=== PATIENT | female | born 1940 | race Caucasian/White ===

== ENCOUNTER 2016-08-31 10:12 | Observation (INO) | payer MEDICARE, OTHER ==
[~2016-08-31] VITALS: Ht 152.4 cm; Wt 70.9 kg
[~2016-08-31 10:12] MED LIST: ASPIR 8181 MG PO; BENICAR40 MG PO; CORTISPORIN OTI10 ML AD; DIGOXIN125 MCG PO; FUROSEMIDE40 MG PO; INVOKANA100 MG PO; LEVOTHYROXINE112 MCG PO; LORATADINE10 MG PO; METFORMIN HCL1000 MG PO; METOPROLOL TAR100 MG PO; METOPROLOL TART50 MG PO; NORVASC 5 MG TAB5 MG PO; PRAVASTATIN SOD20 MG PO; PROTONIX40 MG PO; SYMBICORT 160-1 INHA INH; VOLTAREN100 GM TOP; XARELTO15 MG PO; ZANTAC150 MG PO; ZOFRAN4 MG PO
[2016-08-31 11:25] LABS: HEMOGLOBIN 12.8 gm/dl (12.3-15.3); RED BLOOD COUNT 4.1 M/UL (4.00-5.10); WHITE BLOOD COUNT 9.4 K/UL (4.5-11.0)
[2016-08-31] MEDS ORDERED: ALBUTEROL0.63 MG/3 INH (17:52)
[2016-09-01 04:59] LABS: HEMOGLOBIN 13.9 gm/dl (12.3-15.3); RED BLOOD COUNT 4.5 M/UL (4.00-5.10); WHITE BLOOD COUNT 8.5 K/UL (4.5-11.0)
[2016-09-01] MEDS ORDERED: ELIQUIS5 MG PO (12:04)
[2016-09-01] MEDS ORDERED: POTASSIUM CHLO10 ME1 PO (12:06)
[2016-09-01] MEDS ORDERED: DILTIAZEM 12HR120 MG PO (12:07)
[2016-09-01] MEDS ORDERED: SYNTHROID75 MCG PO (13:05)
[2016-09-01] MEDS ORDERED: LOPRESSOR50 MG PO (13:05)
[2016-09-02] MEDS ORDERED: TESSALON PERLE100 MG PO (12:56)
[2016-09-02] MEDS ORDERED: NOVOLOG FL100 UNIT/1 SQ (12:57)
--- NOTE | 2016-09-02 13:30 | NUR ---
Discharge instruvtions and prescriptions given with a verbal understanding stated by the patient and her daughter. IV removed, pressure held until bleeding quite and coban applied.
== END 2016-09-02 14:20 | disposition home or self-care (01) ==
LOC: ER1 10:12 → ZEROF 12:54 → MED SURG 4 15:12
PROVIDERS: Emergency Medicine; ADMIT Emergency Medicine
DX: I50.31 Acute diastolic (congestive) heart failure (principal); I48.2 Chronic atrial fibrillation; I49.5 Sick sinus syndrome; I27.2 Other secondary pulmonary hypertension; G47.33 Obstructive sleep apnea (adult) (pediatric); J45.909 Unspecified asthma, uncomplicated; E11.9 Type 2 diabetes mellitus without complications; E03.9 Hypothyroidism, unspecified; K21.9 Gastro-esophageal reflux disease without esophagitis; R79.89 Other specified abnormal findings of blood chemistry; I11.0 Hypertensive heart disease with heart failure; Z79.01 Long term (current) use of anticoagulants; Z95.0 Presence of cardiac pacemaker; Z79.899 Other long term (current) drug therapy; Z88.1 Allergy status to other antibiotic agents; Z88.2 Allergy status to sulfonamides; Z88.8 Allergy status to other drugs, medicaments and biological substances; Z90.49 Acquired absence of other specified parts of digestive tract; Z90.710 Acquired absence of both cervix and uterus; Z98.51 Tubal ligation status
CPT/HCPCS: ECHO; 36415; 36600; 71010; 80048; 80053; 82140; 82550; 82553; 82803; 82962; 83690; 83735; 83880; 84439; 84443; 84484; 85025; 87040; 93005; 93306; 94640; 94664; 96374; 96375; 96376; 99285; G0378; J1940; J2930

== ENCOUNTER → 2016-09-04 | Outpatient (CLI) | payer MEDICARE, OTHER ==
[~2016-09-04] MED LIST changes: +ALBUTEROL0.63 MG/3 INH; +DILTIAZEM 12HR120 MG PO; +ELIQUIS5 MG PO; +LOPRESSOR50 MG PO; +NOVOLOG FL100 UNIT/1 SQ; +POTASSIUM CHLO10 ME1 PO; +SYNTHROID75 MCG PO; +TESSALON PERLE100 MG PO
== END ==
LOC: US 09:20
DX: K85.90 Acute pancreatitis without necrosis or infection, unspecified (principal); K76.0 Fatty (change of) liver, not elsewhere classified
CPT/HCPCS: 76700

== ENCOUNTER → 2016-09-13 | Outpatient (CLI) | payer MEDICARE, OTHER | LOC: KOH-I 15:37 | DX: R05 Cough (principal); J90 Pleural effusion, not elsewhere classified; R09.89 Other specified symptoms and signs involving the circulatory and respiratory systems | CPT/HCPCS: 71020 ==

== ENCOUNTER → 2016-09-19 | Outpatient (CLI) | payer MEDICARE, OTHER | LOC: KOH-I 08:00 | DX: M81.0 Age-related osteoporosis without current pathological fracture (principal) | CPT/HCPCS: 77080 ==

== ENCOUNTER → 2020-05-06 | Outpatient (CLI) | payer MEDICARE, OTHER ==
[~2020-05-06] MED LIST changes: -ALBUTEROL0.63 MG/3 INH; +ALBUTEROL2.5 MG/3 M INH; +ALLERGY RELIEF10 M1 PO; +ALLOPURINOL100 MG PO; +B-12500 MCG PO; +CIPRO500 MG PO; +CRESTOR10 MG PO; +DIFLUCAN200 MG PO; +ELIQUIS2.5 MG PO; +FISH OIL 500 M1 EAC3 PO; +IMDUR ER TAB 3030 MG PO; +JANUVIA100 MG PO; +LEVEMIR FL100 UNIT/1 SQ; +LISINOPRIL2.5 MG PO; +NITROGLYCERIN0.4 MG SL; +ST. JOSEPH ASPI81 M1 PO; +SYNJARDY PO; +SYNTHROID125 MCG PO; -SYNTHROID75 MCG PO; +TRESIBA100 UNIT/1 SQ
== END ==
LOC: RAD 15:02
DX: R06.00 Dyspnea, unspecified (principal); J18.9 Pneumonia, unspecified organism
CPT/HCPCS: 71046

== ENCOUNTER 2020-05-12 17:35 | Emergency (ER) | payer MEDICARE, OTHER ==
[~2020-05-12 17:35] MED LIST changes: -ALLERGY RELIEF10 M1 PO; -CRESTOR10 MG PO; -LISINOPRIL2.5 MG PO; -NITROGLYCERIN0.4 MG SL; -ST. JOSEPH ASPI81 M1 PO; -TRESIBA100 UNIT/1 SQ
[2020-05-12 18:30] LABS: HEMOGLOBIN 12.6 gm/dl (12.3-15.3); RED BLOOD COUNT 4.71 M/UL (4.00-5.10); WHITE BLOOD COUNT 7.9 K/UL (4.5-11.0)
== END 2020-05-12 21:50 | disposition home or self-care (01) ==
LOC: ER1 17:35
PROVIDERS: Internal Medicine
DX: R10.11 Right upper quadrant pain (principal); R10.31 Right lower quadrant pain; E11.9 Type 2 diabetes mellitus without complications; J44.9 Chronic obstructive pulmonary disease, unspecified; E78.5 Hyperlipidemia, unspecified; F03.90 Unspecified dementia, unspecified severity, without behavioral disturbance, psychotic disturbance, mood disturbance, and anxiety; I10 Essential (primary) hypertension; Z99.81 Dependence on supplemental oxygen; Z95.0 Presence of cardiac pacemaker; Z79.01 Long term (current) use of anticoagulants; Z79.4 Long term (current) use of insulin
CPT/HCPCS: 71046; 80053; 81001; 82550; 82553; 83605; 83690; 83874; 84484; 85025; 93005; 99284

== ENCOUNTER 2020-08-21 11:32 | Observation (INO) | payer MEDICARE, OTHER ==
[~2020-08-21] VITALS: Ht 157.5 cm; Wt 59.0 kg
[2020-08-21 12:30] LABS: HEMOGLOBIN 12.7 gm/dl (12.3-15.3); RED BLOOD COUNT 4.58 M/UL (4.00-5.10)
[2020-08-21] MEDS ORDERED: NITROGLYCERIN0.4 MG SL (17:02)
[2020-08-21] MEDS ORDERED: CRESTOR10 MG PO (17:03)
[2020-08-21] MEDS ORDERED: ST. JOSEPH ASPI81 M1 PO (17:06)
[2020-08-21] MEDS ORDERED: ALLERGY RELIEF10 M1 PO (17:06)
[2020-08-21] MEDS ORDERED: LISINOPRIL2.5 MG PO (17:07)
[2020-08-21] MEDS ORDERED: TRESIBA100 UNIT/1 SQ (18:00)
[2020-08-22 03:15] LABS: HEMOGLOBIN 11.6 gm/dl (12.3-15.3); RED BLOOD COUNT 4.23 M/UL (4.00-5.10); WHITE BLOOD COUNT 8.2 K/UL (4.5-11.0)
[2020-08-22 03:39] LABS: BUN/CREATININE RATIO 12 (0-10)
== END 2020-08-22 18:21 | disposition home or self-care (01) ==
LOC: ER1 11:32 → MED SURG 4 13:39 → CDU 13:39 → MED SURG 4 19:15
PROVIDERS: Physician Assistant Medical; ADMIT Internal Medicine
DX: I20.9 Angina pectoris, unspecified (principal); I48.21 Permanent atrial fibrillation; I49.5 Sick sinus syndrome; I10 Essential (primary) hypertension; E78.5 Hyperlipidemia, unspecified; E11.9 Type 2 diabetes mellitus without complications; I27.20 Pulmonary hypertension, unspecified; I34.0 Nonrheumatic mitral (valve) insufficiency; K21.9 Gastro-esophageal reflux disease without esophagitis; E03.9 Hypothyroidism, unspecified; J44.9 Chronic obstructive pulmonary disease, unspecified; F41.9 Anxiety disorder, unspecified; E87.6 Hypokalemia; G89.29 Other chronic pain; R10.9 Unspecified abdominal pain; J96.11 Chronic respiratory failure with hypoxia; Z20.822 Contact with and (suspected) exposure to COVID-19; Z79.01 Long term (current) use of anticoagulants; Z79.82 Long term (current) use of aspirin; Z79.4 Long term (current) use of insulin; Z79.899 Other long term (current) drug therapy; Z95.0 Presence of cardiac pacemaker; Z99.81 Dependence on supplemental oxygen; Z90.49 Acquired absence of other specified parts of digestive tract; Z90.710 Acquired absence of both cervix and uterus; Z98.51 Tubal ligation status; Z87.891 Personal history of nicotine dependence; Z88.0 Allergy status to penicillin; Z88.1 Allergy status to other antibiotic agents; Z88.2 Allergy status to sulfonamides; Z88.5 Allergy status to narcotic agent; Z88.6 Allergy status to analgesic agent; Z88.8 Allergy status to other drugs, medicaments and biological substances
CPT/HCPCS: 36415; 71045; 80053; 81001; 82550; 82553; 82962; 83036; 83735; 83874; 83880; 84443; 84484; 85025; 85027; 85610; 93005; 99285; G0378; U0002

== ENCOUNTER → 2020-08-26 | Outpatient (CLI) | payer MEDICARE, OTHER ==
[~2020-08-26] MED LIST changes: +ALLERGY RELIEF10 M1 PO; +CRESTOR10 MG PO; +LISINOPRIL2.5 MG PO; +NITROGLYCERIN0.4 MG SL; +ST. JOSEPH ASPI81 M1 PO; +TRESIBA100 UNIT/1 SQ
== END ==
LOC: CT 07:26
PROVIDERS: Nurse Practitioner Family
DX: R10.84 Generalized abdominal pain (principal); E03.9 Hypothyroidism, unspecified; N19 Unspecified kidney failure; J98.4 Other disorders of lung; J90 Pleural effusion, not elsewhere classified
CPT/HCPCS: 36415; 73030; 80048; 84439; 84443; Q9967

== ENCOUNTER 2021-01-30 00:21 | Inpatient (IN) | payer MEDICARE, OTHER ==
[~2021-01-30] VITALS: Ht 157.5 cm; Wt 59.0 kg
[2021-01-30 01:42] LABS: HEMOGLOBIN 11.9 gm/dl (12.3-15.3); RED BLOOD COUNT 4.29 M/UL (4.00-5.10)
[2021-01-30 02:40] LABS: BUN/CREATININE RATIO 11 (0-10)
[2021-01-30 15:25] LABS: ACINETOBACTER BAUMANNII Not Detected (Negative); CANDIDA ALBICANS Not Detected (Negative); CANDIDA KRUSEI Not Detected (Negative); CANDIDA TROPICALIS Not Detected (Negative); ENTEROCOCCUS Not Detected (Negative); ESCHERICHIA COLI Not Detected (Negative); HAEMOPHILUS INFLUENZAE Not Detected (Negative); KLEBSIELLA OXYTOCA Not Detected (Negative); KLEBSIELLA PNEUMONIAE Not Detected (Negative); KPC-CARBAPENEM-RESISTANCE GENE Not Detected (Negative); PROTEUS Not Detected (Negative); PSEUDOMONAS AERUGINOSA Not Detected (Negative); SERRATIA MARCESANS Not Detected (Negative); STREP AGALACTIAE (GROUP B) Not Detected (Negative); STREP PYOGENES (GROUP A) Not Detected (Negative); STREPTOCOCCUS Not Detected (Negative); mecA (METHICILLIN RESIST GENE Not Detected (Negative); vanA/B (VANCOMYCIN RESIST GENE Not Detected (Negative)
[2021-01-30 15:34] LABS: STAPHYLOCOCCUS DETECTED (Negative); STAPHYLOCOCCUS AUREUS DETECTED (Negative)
--- NOTE | 2021-01-30 15:47 | NUR ---
DR. HAQ NOTIFIED OF BLOOD CULTURE RESULTS. NO NEW ORDERS, DR HAQ STATES SHE WILL LOOK AT THE RESULTS
[2021-01-31 05:42] LABS: HEMOGLOBIN 11.4 gm/dl (12.3-15.3); RED BLOOD COUNT 4.17 M/UL (4.00-5.10); WHITE BLOOD COUNT 24.9 K/UL (4.5-11.0)
[2021-02-01 04:14] LABS: HEMOGLOBIN 10.3 gm/dl (12.3-15.3); RED BLOOD COUNT 3.78 M/UL (4.00-5.10); WHITE BLOOD COUNT 19.6 K/UL (4.5-11.0)
[2021-02-02 07:36] LABS: HEMOGLOBIN 10.9 gm/dl (12.3-15.3); RED BLOOD COUNT 4.1 M/UL (4.00-5.10); WHITE BLOOD COUNT 18.2 K/UL (4.5-11.0)
[2021-02-03 04:20] LABS: HEMOGLOBIN 10.2 gm/dl (12.3-15.3); RED BLOOD COUNT 3.77 M/UL (4.00-5.10); WHITE BLOOD COUNT 15.5 K/UL (4.5-11.0)
[2021-02-04 03:31] LABS: HEMOGLOBIN 10.1 gm/dl (12.3-15.3); RED BLOOD COUNT 3.74 M/UL (4.00-5.10); WHITE BLOOD COUNT 15.1 K/UL (4.5-11.0)
--- NOTE | 2021-02-04 21:40 | NUR ---
WOUND CARE PERFORMED. WOUND CLEANSED WITH WOUND NOVELTIES SALES REPRESENTATIVE. NO PACKING NOTED INSIDE WOUND. WOUND APPEARS TO BE HEALING AND IS NOTED TO HAVE YELLOW SLOUGH INSIDE WOUND BED. APPLIED CLEAN DRESSING AND GUAZE. PT TOLERATED WELL.
[2021-02-05 13:51] LABS: RED BLOOD COUNT 3.7 M/UL (4.00-5.10); WHITE BLOOD COUNT 15.4 K/UL (4.5-11.0)
--- NOTE | 2021-02-06 05:12 | NUR ---
WOUND TO RIGHT ELBOW CLEANSED AND DRESSING CHANGED ORDERED. PT TOLERATED WELL. SITE IS SHOWING SIGNS OF HEALING AND IMPROVEMENT.
--- NOTE | 2021-02-06 22:22 | NUR ---
WOUND TO RIGHT ELBOW CLEANSED WITH WOUND INTEGRATION CONSULTANT AND MEPLEX APPLIED. PT TOLERATED WELL.
[2021-02-07 15:37] LABS: HEMOGLOBIN 10.8 gm/dl (12.3-15.3); RED BLOOD COUNT 3.93 M/UL (4.00-5.10); WHITE BLOOD COUNT 11.6 K/UL (4.5-11.0)
[2021-02-07 18:34] LABS: BODY FLUID SOURCE PLEURAL
[2021-02-07 18:35] LABS: MONONUCLEAR CELLS 46.8 (75-100); POLYMORPHONUCLEAR % 53.2 (0-25); RBC (AUTOMATED) 123000 (0-100000); WBC (AUTOMATED) 1077 (0-500)
[2021-02-07 19:56] LABS: LDH, BODY FLUID 204 U/L; TOTAL PROTEIN, BODY FLUID 2.6 gm/dL
[2021-02-08 05:23] LABS: HEMOGLOBIN 10.7 gm/dl (12.3-15.3); RED BLOOD COUNT 4.11 M/UL (4.00-5.10); WHITE BLOOD COUNT 8.8 K/UL (4.5-11.0)
[2021-02-09 04:21] LABS: HEMOGLOBIN 10.6 gm/dl (12.3-15.3); RED BLOOD COUNT 4.1 M/UL (4.00-5.10); WHITE BLOOD COUNT 9.6 K/UL (4.5-11.0)
[2021-02-11 07:03] LABS: HEMOGLOBIN 12.1 gm/dl (12.3-15.3); RED BLOOD COUNT 4.49 M/UL (4.00-5.10); WHITE BLOOD COUNT 10.5 K/UL (4.5-11.0)
[2021-02-11] MEDS ORDERED: DONEPEZIL HCL OD5 MG PO (13:32)
[2021-02-11] MEDS ORDERED: QUETIAPINE FUMA25 MG PO (13:32)
--- NOTE | 2021-02-11 19:29 | NUR ---
APPROX. 1928: ATTEMPTED TO CALL REPORT TO [facility]. AWAITING PHONE CALL BACK. APPROX. 1936: [facility] RETURNED MY PHONE CALL. CALLED REPORT TO NURSE ZHONG
== END 2021-02-11 21:25 | disposition home health service (06) | DRG 871 ==
LOC: ER1 00:21 → CDU 03:48 → M/S 03:48 → PROG CARE 08:57 → M/S 08:57 → PROG CARE 02-03 19:00 → MED SURG 4 02-10 16:00
PROVIDERS: Family Medicine; Internal Medicine; Internal Medicine Pulmonary Disease; Physician Assistant; Physician Assistant Medical; ADMIT Internal Medicine
PROC: 0W9B3ZZ Drainage of Left Pleural Cavity, Percutaneous Approach (ICD-10-PCS; principal; 2021-02-07)
DX: A41.01 Sepsis due to Methicillin susceptible Staphylococcus aureus (principal); G93.41 Metabolic encephalopathy; J18.9 Pneumonia, unspecified organism; J96.21 Acute and chronic respiratory failure with hypoxia; I50.33 Acute on chronic diastolic (congestive) heart failure; J69.0 Pneumonitis due to inhalation of food and vomit; L03.115 Cellulitis of right lower limb; J98.11 Atelectasis; N30.00 Acute cystitis without hematuria; J44.0 Chronic obstructive pulmonary disease with (acute) lower respiratory infection; Z20.822 Contact with and (suspected) exposure to COVID-19; A41.51 Sepsis due to Escherichia coli [E. coli]; F03.90 Unspecified dementia, unspecified severity, without behavioral disturbance, psychotic disturbance, mood disturbance, and anxiety; I48.91 Unspecified atrial fibrillation; K21.9 Gastro-esophageal reflux disease without esophagitis; E03.9 Hypothyroidism, unspecified; R53.81 Other malaise; E78.5 Hyperlipidemia, unspecified; I11.0 Hypertensive heart disease with heart failure; G89.29 Other chronic pain; R13.10 Dysphagia, unspecified; D64.9 Anemia, unspecified; M54.9 Dorsalgia, unspecified; R65.20 Severe sepsis without septic shock; E11.9 Type 2 diabetes mellitus without complications; Z95.0 Presence of cardiac pacemaker; Z98.51 Tubal ligation status; Z79.01 Long term (current) use of anticoagulants; Z90.49 Acquired absence of other specified parts of digestive tract; Z90.710 Acquired absence of both cervix and uterus; Z98.890 Other specified postprocedural states; Z88.8 Allergy status to other drugs, medicaments and biological substances; Z88.5 Allergy status to narcotic agent; Z80.8 Family history of malignant neoplasm of other organs or systems; Z80.0 Family history of malignant neoplasm of digestive organs
CPT/HCPCS: ECHO; 36415; 36600; 71045; 71046; 73090; 73200; 80048; 80053; 80202; 81001; 82550; 82553; 82803; 82945; 82962; 83605; 83615; 83880; 83986; 84157; 84484; 85025; 85027; 87040; 87070; 87077; 87086; 87150; 87186; 87205; 89051; 92526; 92610; 93005; 93306; 94640; 94664; 94760; 96365; 97110; 97116-GP-CQ; 97162; 97166; 97530; 97530-GP-CQ; 99285; A6212; J0690; J0696; J1335; J1630; J1940; J2270; J2405; J3370; J7030; J7050; J7070; U0002

== ENCOUNTER 2021-05-14 15:07 | Emergency (ER) | payer MEDICARE, OTHER ==
[~2021-05-14 15:07] MED LIST changes: +DONEPEZIL HCL OD5 MG PO; +QUETIAPINE FUMA25 MG PO
[2021-05-14 16:11] LABS: HEMOGLOBIN 11.3 gm/dl (12.3-15.3); RED BLOOD COUNT 4.18 M/UL (4.00-5.10)
== END 2021-05-14 21:05 | disposition home or self-care (01) ==
LOC: ER1 15:07
PROVIDERS: Physician Assistant
DX: E11.65 Type 2 diabetes mellitus with hyperglycemia (principal); I10 Essential (primary) hypertension; Z79.01 Long term (current) use of anticoagulants
CPT/HCPCS: 80048; 81001; 82009; 82962; 85025; 96374; 99284; J7030

== ENCOUNTER 2021-06-11 15:50 | Emergency (ER) | payer MEDICARE, OTHER ==
[2021-06-11 17:15] LABS: HEMOGLOBIN 10.4 gm/dl (12.3-15.3); WHITE BLOOD COUNT 8.9 K/UL (4.5-11.0)
== END 2021-06-11 19:28 | disposition home or self-care (01) ==
LOC: ER1 15:50
PROVIDERS: Emergency Medicine
DX: I10 Essential (primary) hypertension (principal); J90 Pleural effusion, not elsewhere classified; I48.91 Unspecified atrial fibrillation; Z79.01 Long term (current) use of anticoagulants; R60.9 Edema, unspecified; F03.90 Unspecified dementia, unspecified severity, without behavioral disturbance, psychotic disturbance, mood disturbance, and anxiety
CPT/HCPCS: 71045; 80053; 82550; 82553; 83880; 84484; 85025; 93005; 99284

== ENCOUNTER → 2021-08-01 | Outpatient (CLI) | payer MEDICARE, OTHER | LOC: LBRF 16:00 | DX: N39.0 Urinary tract infection, site not specified (principal) | CPT/HCPCS: 87086 ==

== ENCOUNTER 2021-09-13 22:37 | Emergency (ER) | payer MEDICARE, OTHER ==
[~2021-09-13 22:37] MED LIST changes: +ASPIRIN EC81 MG PO; +ISOSORBIDE MONO30 MG PO; +LACTULOSE10 GM/15 M PO; +LINZESS72 MCG PO; +LOPRESSOR100 MG PO; -LOPRESSOR50 MG PO; +MECLIZINE HCL25 MG PO; +MULTIVITAMIN1 EACH PO; +MYCOSTATIN POWD15 GM TOP; +OMEGA-31000 MG PO; -POTASSIUM CHLO10 ME1 PO; +POTASSIUM CHLO20 ME2 PO; +PROAIR HFA8.5 GM INH; +SERTRALINE HCL25 MG PO; +SPIRIVA RESPIMAT4 GM INH; +TRESIBA SQ; -TRESIBA100 UNIT/1 SQ; +VITAMIN C500 M4 PO; +VITAMIN D210 MCG PO; +ZAROXOLYN/DIUL2.5 MG PO; +ZOFRAN ODT 4 MG4 MG PO
[2021-09-13 23:17] LABS: RED BLOOD COUNT 3.73 M/UL (4.00-5.10); WHITE BLOOD COUNT 11.5 K/UL (4.5-11.0)
== END 2021-09-14 01:20 | disposition home or self-care (01) ==
LOC: ER1 22:37
PROVIDERS: Family Medicine
DX: E11.649 Type 2 diabetes mellitus with hypoglycemia without coma (principal); I48.91 Unspecified atrial fibrillation; J44.9 Chronic obstructive pulmonary disease, unspecified; Z95.0 Presence of cardiac pacemaker
CPT/HCPCS: 70450; 71045; 80053; 82550; 82553; 82962; 84484; 85025; 87040; 93005; 96374; 99285

== ENCOUNTER 2021-09-25 23:10 | Emergency (ER) | payer MEDICARE, OTHER ==
[2021-09-25 23:39] LABS: HEMOGLOBIN 9.8 gm/dl (12.3-15.3); RED BLOOD COUNT 3.71 M/UL (4.00-5.10); WHITE BLOOD COUNT 8.1 K/UL (4.5-11.0)
[2021-09-26] MEDS ORDERED: KLOR-CON M2020 MEQ PO (04:00)
[2021-09-26] MEDS ORDERED: LASIX 40 MG TAB40 MG PO (04:00)
== END 2021-09-26 04:25 | disposition home or self-care (01) ==
LOC: ER1 23:10
PROVIDERS: Student in an Organized Health Care Education/Training Program
DX: I50.1 Left ventricular failure, unspecified (principal); J44.9 Chronic obstructive pulmonary disease, unspecified; E11.9 Type 2 diabetes mellitus without complications
CPT/HCPCS: 71045; 80053; 81001; 82550; 82553; 83880; 84484; 85025; 93005; 99285

== ENCOUNTER 2021-09-30 03:04 | Emergency (ER) | payer MEDICARE, OTHER ==
[~2021-09-30 03:04] MED LIST changes: +KLOR-CON M2020 MEQ PO; +LASIX 40 MG TAB40 MG PO
[2021-09-30 05:28] LABS: HEMOGLOBIN 9.3 gm/dl (12.3-15.3); RED BLOOD COUNT 3.59 M/UL (4.00-5.10); WHITE BLOOD COUNT 9.4 K/UL (4.5-11.0)
[2021-09-30] MEDS ORDERED: DOXYCYCLINE HY100 MG PO (09:28)
== END 2021-09-30 09:46 | disposition home or self-care (01) ==
LOC: ER1 03:04
PROVIDERS: Family Medicine
DX: E11.65 Type 2 diabetes mellitus with hyperglycemia (principal); R41.0 Disorientation, unspecified; J18.9 Pneumonia, unspecified organism; I48.91 Unspecified atrial fibrillation; I10 Essential (primary) hypertension; E78.5 Hyperlipidemia, unspecified; Z90.710 Acquired absence of both cervix and uterus; Z79.01 Long term (current) use of anticoagulants
CPT/HCPCS: 71046; 80053; 80162; 81001; 82550; 82553; 82607; 82746; 83540; 83550; 83605; 84484; 85025; 87040; 87077; 87086; 87186; 93005; 99285

== ENCOUNTER 2021-10-05 02:30 | Emergency (ER) | payer MEDICARE, OTHER, MEDICAID ==
[~2021-10-05 02:30] MED LIST changes: +DOXYCYCLINE HY100 MG PO
== END 2021-10-05 04:35 | disposition home or self-care (01) ==
LOC: ER1 02:30
DX: Z04.3 Encounter for examination and observation following other accident (principal); K43.9 Ventral hernia without obstruction or gangrene; E11.9 Type 2 diabetes mellitus without complications; I11.9 Hypertensive heart disease without heart failure; Z95.0 Presence of cardiac pacemaker; Z90.710 Acquired absence of both cervix and uterus
CPT/HCPCS: 71045; 81001; 99283

== ENCOUNTER 2021-10-06 16:21 | Emergency (ER) | payer MEDICARE, OTHER ==
[2021-10-06 17:16] LABS: HEMOGLOBIN 9.4 gm/dl (12.3-15.3); RED BLOOD COUNT 3.6 M/UL (4.00-5.10); WHITE BLOOD COUNT 7.8 K/UL (4.5-11.0)
== END 2021-10-06 20:55 | disposition home or self-care (01) ==
LOC: ER1 16:21
PROVIDERS: Nurse Practitioner
DX: D64.9 Anemia, unspecified (principal); I11.9 Hypertensive heart disease without heart failure; E11.9 Type 2 diabetes mellitus without complications; Z95.0 Presence of cardiac pacemaker
CPT/HCPCS: 70450; 80053; 81001; 82550; 82553; 84484; 85025; 87086; 93005; 99284; Q9967

== ENCOUNTER 2021-10-12 17:00 | Emergency (ER) | payer MEDICARE, OTHER ==
[2021-10-12 17:57] LABS: HEMOGLOBIN 9.8 gm/dl (12.3-15.3); RED BLOOD COUNT 3.72 M/UL (4.00-5.10); WHITE BLOOD COUNT 8.4 K/UL (4.5-11.0)
== END 2021-10-12 21:55 | disposition home or self-care (01) ==
LOC: ER1 17:00
DX: K64.9 Unspecified hemorrhoids (principal); D64.9 Anemia, unspecified; T46.0X5A Adverse effect of cardiac-stimulant glycosides and drugs of similar action, initial encounter; I50.9 Heart failure, unspecified; J44.9 Chronic obstructive pulmonary disease, unspecified; E11.9 Type 2 diabetes mellitus without complications; Z90.49 Acquired absence of other specified parts of digestive tract; Z95.0 Presence of cardiac pacemaker
CPT/HCPCS: 71045; 80053; 80162; 81001; 82272; 82550; 82553; 82607; 82746; 83540; 83550; 84439; 84443; 84484; 85025; 93005; 99284

== ENCOUNTER 2021-10-18 13:04 | Emergency (ER) | payer MEDICARE, OTHER ==
[2021-10-18 14:09] LABS: HEMOGLOBIN 9.2 gm/dl (12.3-15.3); RED BLOOD COUNT 3.51 M/UL (4.00-5.10); WHITE BLOOD COUNT 8.9 K/UL (4.5-11.0)
== END 2021-10-18 18:00 | disposition home or self-care (01) ==
LOC: ER1 13:04
DX: E11.22 Type 2 diabetes mellitus with diabetic chronic kidney disease (principal); N18.9 Chronic kidney disease, unspecified; D63.1 Anemia in chronic kidney disease; Z95.0 Presence of cardiac pacemaker; Z88.0 Allergy status to penicillin; Z79.01 Long term (current) use of anticoagulants
CPT/HCPCS: 71045; 80053; 81001; 82550; 82553; 83880; 84484; 85025; 93005; 99284

== ENCOUNTER → 2021-12-01 | Outpatient (CLI) | payer MEDICARE, OTHER | LOC: LAB 14:28 | PROVIDERS: Internal Medicine Nephrology | DX: N18.31 Chronic kidney disease, stage 3a (principal) | CPT/HCPCS: 36415; 80048 ==

== ENCOUNTER 2021-12-05 22:10 | Observation (INO) | payer MEDICARE, OTHER ==
[~2021-12-05] VITALS: Ht 157.5 cm; Wt 69.4 kg
[~2021-12-05 22:10] MED LIST changes: -SYNTHROID125 MCG PO; +SYNTHROID137 MCG PO
[2021-12-05 23:40] LABS: HEMOGLOBIN 9.6 gm/dl (12.3-15.3); RED BLOOD COUNT 3.97 M/UL (4.00-5.10); WHITE BLOOD COUNT 5.7 K/UL (4.5-11.0)
[2021-12-06] MEDS ORDERED: FUROSEMIDE40 MG PO (09:22)
[2021-12-06] MEDS ORDERED: ESTRADIOL42.5 GM VG (09:35)
[2021-12-06] MEDS ORDERED: HYDROXYZINE HCL10 MG PO (09:36)
[2021-12-06] MEDS ORDERED: KENALOG CREAM 015 GM TOP (09:36)
[2021-12-06] MEDS ORDERED: ISOSORBIDE MONO30 MG PO (09:48)
[2021-12-06] MEDS ORDERED: SEROQUEL25 MG PO (09:50)
[2021-12-06] MEDS ORDERED: IPRATROPIU0.2 MG/1 M INH (09:57)
[2021-12-07 06:45] LABS: HEMOGLOBIN 9.6 gm/dl (12.3-15.3); WHITE BLOOD COUNT 5.8 K/UL (4.5-11.0)
[2021-12-07] MEDS ORDERED: CRESTOR 10 MG T10 MG PO (16:01)
[2021-12-07] MEDS ORDERED: RANEXA500 MG PO (16:01)
== END 2021-12-07 17:04 | disposition home or self-care (01) ==
LOC: ER1 22:10 → CDU 12-06 → MED SURG 4 12-06
PROVIDERS: Physician Assistant; ADMIT Internal Medicine
DX: R07.89 Other chest pain (principal); I48.0 Paroxysmal atrial fibrillation; E11.9 Type 2 diabetes mellitus without complications; E78.5 Hyperlipidemia, unspecified; E03.9 Hypothyroidism, unspecified; K21.9 Gastro-esophageal reflux disease without esophagitis; F03.90 Unspecified dementia, unspecified severity, without behavioral disturbance, psychotic disturbance, mood disturbance, and anxiety; I49.5 Sick sinus syndrome; I11.0 Hypertensive heart disease with heart failure; I50.32 Chronic diastolic (congestive) heart failure; J44.9 Chronic obstructive pulmonary disease, unspecified; Z79.4 Long term (current) use of insulin; Z79.01 Long term (current) use of anticoagulants; Z79.82 Long term (current) use of aspirin; Z79.899 Other long term (current) drug therapy; Z87.891 Personal history of nicotine dependence; Z88.0 Allergy status to penicillin; Z88.1 Allergy status to other antibiotic agents; Z88.2 Allergy status to sulfonamides; Z88.5 Allergy status to narcotic agent; Z88.8 Allergy status to other drugs, medicaments and biological substances; Z95.0 Presence of cardiac pacemaker
CPT/HCPCS: 71045; 80048; 80053; 82550; 82553; 82962; 83036; 83880; 84484; 85025; 85379; 85610; 85730; 93005; 96374; 96376; 99285; G0378; J2405; U0002